=== PATIENT | female | born 1950 ===

== ENCOUNTER 2019-10-30 13:23 | Emergency (ER) | payer OTHER ==
[~2019-10-30] VITALS: Ht 152.4 cm; Wt 80.7 kg
[2019-10-30] MEDS ORDERED: PROTONIX20 MG (13:49)
[2019-10-30] MEDS ORDERED: TRINTELLIX20 MG (13:49)
[2019-10-30] MEDS ORDERED: ARMOUR THYROID90 MG (13:50)
== END 2019-10-30 18:46 | disposition home or self-care (01) ==
LOC: ER 13:23
DX: M54.89 Other dorsalgia (principal)